=== PATIENT | male | born 1985 | race Caucasian/White ===

== ENCOUNTER 2021-03-19 09:29 | Emergency (ER) | payer OTHER, BC | END 2021-03-19 10:36 | disposition home or self-care (01) | LOC: CSHERS 09:29 | DX: R07.2 Precordial pain (principal); E78.5 Hyperlipidemia, unspecified; V89.2XXA Person injured in unspecified motor-vehicle accident, traffic, initial encounter | CPT/HCPCS: 71045; 93005 ==

== ENCOUNTER 2022-05-01 14:21 | Emergency (ER) | payer BC, OTHER ==
[2022-05-01] MEDS ORDERED: Lidocaine 1% (PF) 30 ML VIAL ONE (15:19)
[2022-05-01] MEDS ORDERED: Bacitracin 1 PK ONE (17:26)
== END 2022-05-01 17:54 | disposition home or self-care (01) ==
LOC: CSHERS 14:21
DX: S61.011A Laceration without foreign body of right thumb without damage to nail, initial encounter (principal); E78.5 Hyperlipidemia, unspecified; W26.0XXA Contact with knife, initial encounter; Y92.009 Unspecified place in unspecified non-institutional (private) residence as the place of occurrence of the external cause
CPT/HCPCS: 12002; J2001